=== PATIENT | male | born 1965 ===

== ENCOUNTER 2024-02-03 08:18 | Day surgery (SDC) | payer OTHER ==
[~2024-02-03] VITALS: Ht 167.6 cm; Wt 117.9 kg
[2024-02-03] MEDS ORDERED: MIDAZOLAM HCL 5 MG/5 ML VIAL ONE (09:02)
[2024-02-03] MEDS ORDERED: fentaNYL CITRATE/PF 100 MCG/2 ML AMP ONE (09:02)
[2024-02-03 12:17] VITALS: O2SAT 94
[2024-02-03 13:29] VITALS: BP_SYST 151; PULSE 96; RESP 18
== END 2024-02-03 11:10 | disposition home or self-care (01) ==
LOC: SDS 08:18 → SMU 08:19 → SDS 11:10
PROVIDERS: ATTEND Internal Medicine
DX: K62.5 Hemorrhage of anus and rectum (principal); D12.5 Benign neoplasm of sigmoid colon; K62.1 Rectal polyp; K64.8 Other hemorrhoids; I10 Essential (primary) hypertension; E11.9 Type 2 diabetes mellitus without complications; E78.5 Hyperlipidemia, unspecified; Z79.899 Other long term (current) drug therapy
CPT/HCPCS: 45385; 82948; 88305; 99152; G0378; J2250; J3010